=== PATIENT | female | born 1960 | race Caucasian/White ===

== ENCOUNTER → 2019-05-27 08:36 | Outpatient (CLI) | payer BC ==
--- NOTE | 2019-06-05 13:30 | ST ---
PATIENT:REGI ORTEZ MEDICAL RECORD: [id number] SEX: F LOCATION:[facility] ORDER #: ADMISSION DATE: 05/27/19 AGE OF PATIENT: 59 REFERRING PHYSICIAN: INTERPRETING PHYSICIAN: MADDY ESCOBAR MD DATE OF SERVICE: 05/27/2019 PROCEDURE: Nuclear stress test. INDICATIONS: Angina, hypertension, hyperlipidemia. She was exercised on standard Immanuel protocol for 8 minutes achieving greater than 85% max target heart rate response with 33 mCi of sestamibi injected at peak stress, 11 mCi used previously for rest images. FINDINGS: Gated SPECT reveals preserved ejection fraction at 74% with good wall motion and thickening and brightening throughout all segments. SPECT imaging: Cardiolite was used as myocardial perfusion agent. There is homogeneous uptake throughout all segments at rest and stress with no evidence of inducible ischemia or previous infarction. OVERALL IMPRESSION: 1. This is a normal nuclear stress test with no evidence of inducible ischemia or previous infarction. 2. Gated SPECT reveals a preserved ejection fraction at 74%. In this patient with ongoing symptomatology, the current scan does not suggest the presence of hemodynamically significant coronary artery disease. Evaluate noncardiac etiology of chest pain. TRANSINT:[id number] Voice Confirmation ID: [id number] DOCUMENT ID: [id number] MADDY ESCOBAR MD at 1330 CC: BRYSON CORDERO MD [id number] DICTATION DATE: 05/28/19 1204 OTOLARYNGOLOGY REP: 05/29/19 0655 DEP CLI 05/27/19 [place] [id number] [place] [id number]
== END | disposition home or self-care (01) ==
LOC: D.HCCARDIO 08:36
PROVIDERS: ATTEND Internal Medicine Interventional Cardiology
DX: R07.9 Chest pain, unspecified (principal)